=== PATIENT | female | born 1990 | race Caucasian/White ===

== ENCOUNTER 2019-01-13 16:00 | Emergency (ER) | payer OTHER ==
[~2019-01-13] VITALS: Ht 160 cm; Wt 49.9 kg
[~2019-01-13 16:00] MED LIST: CEPHALEXIN500 M1 PO; SEPTDS PO
[2019-01-13 17:40] LABS: BASO % 0.3 % (0.0-1.0); EOS # 0.2 10*3/uL (0.0-0.4); EOS % 1.8 % (1.0-4.0); HEMATOCRIT 31.4 % (37.0-47.0); HEMOGLOBIN 10.8 g/dl (12.0-16.0); LYMPH # 2.6 10*3/uL (1.3-4.4); MEAN CELL VOLUME 95.2 fl (81.0-99.0); MEAN CORPUSCULAR HGB 32.7 pg (27.0-31.0); MEAN CORPUSCULAR HGB CONC 34.4 g/dl (33.0-37.0); MEAN PLATELET VOLUME 9.3 fl (9.6-12.3); MONO # 0.8 10*3/uL (0.1-1.0); MONO % 7.2 % (3.0-9.0); NEUT # 7.2 10*3/uL (2.3-7.9); NEUT % 66.1 % (47.0-73.0); PLATELET COUNT AUTOMATED 297 10*3/uL (130-400); RED CELL DISTRI WIDTH 12.9 % (0-14.5); WHITE BLOOD COUNT 10.8 10*3/uL (4.8-10.8)
[2019-01-13 17:55] LABS: ALBUMIN 2.5 gm/dl (3.1-4.5); ALKALINE PHOSPHATASE 90 U/L (45-117); BUN 11 mg/dl (7-24); CHLORIDE 109 mmol/L (98-107); CREATININE 0.72 mg/dL (0.55-1.02); POTASSIUM 3.9 mmol/L (3.5-5.1); SGOT/AST 70 IU/L (3-35); SGPT/ALT 86 U/L (12-78); SODIUM 140 mmol/L (136-145); TOTAL PROTEIN 8.2 gm/dL (6.4-8.2)
== END 2019-01-13 19:51 | disposition home or self-care (01) ==
LOC: ED 16:00
PROVIDERS: Nurse Practitioner Family
DX: L02.414 Cutaneous abscess of left upper limb (principal); F17.200 Nicotine dependence, unspecified, uncomplicated

== ENCOUNTER 2019-01-14 20:59 | Inpatient (IN) | payer OTHER ==
[~2019-01-14] VITALS: Ht 165.1 cm; Wt 60.6 kg
--- NOTE | ~2019-01-14 | EKG ---
[place], [place] ELECTROCARDIOGRAM REPORT NAME: CASSIA CASTELAN UNIT #: [id number] ROOM: 403 DOCTOR: TARUN DRAFT REPORT BIRTHDATE: [birth year] [facility] Test Date: 2019-01-15 Test Time: 01:20:11 Pat Name: CASSIA CASTELAN Department: Room: 403 2 Gender: F Wellness Rn: : 1990 Requested By: CHRISTOPHER SANTOS Order Number: [id number] Reading MD: Hailye Anderson MD Measurements Intervals [place] Rate: 74 P: -25 [place]: 141 QRS: 60 QRSD: 78 T: 51 QT: 414 QTc: 460 Interpretive Statements Sinus rhythm Electronically Signed On 01-15-2019 13:40:28 PDT by Hailey Anderson MD CM:EKGRPT:ELECTROCARDIOGRAM REPORT [id number] CHRISTOPHER CURIEL DRAFT REPORT CHRISTOPHER SANTOS DO
--- NOTE | ~2019-01-14 | EKG ---
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
--- NOTE | ~2019-01-14 | EKG ---
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
[2019-01-14 20:59] VITALS: BP 106/64
[2019-01-14 22:17] LABS: ALBUMIN 2.4 gm/dl (3.1-4.5); ALKALINE PHOSPHATASE 79 U/L (45-117); BUN 13 mg/dl (7-24); CHLORIDE 107 mmol/L (98-107); CREATININE 0.71 mg/dL (0.55-1.02); LIPASE 103 U/L (73-393); POTASSIUM 4.6 mmol/L (3.5-5.1); SGOT/AST 70 IU/L (3-35); SGPT/ALT 76 U/L (12-78); SODIUM 136 mmol/L (136-145); TOTAL PROTEIN 7.7 gm/dL (6.4-8.2)
[2019-01-14 22:57] LABS: BASO % 0.3 % (0.0-1.0); EOS # 0.3 10*3/uL (0.0-0.4); EOS % 3.5 % (1.0-4.0); HEMATOCRIT 30.2 % (37.0-47.0); HEMOGLOBIN 10.3 g/dl (12.0-16.0); LYMPH # 2.9 10*3/uL (1.3-4.4); LYMPH % 36.7 % (27.0-41.0); MEAN CELL VOLUME 95.9 fl (81.0-99.0); MEAN CORPUSCULAR HGB 32.7 pg (27.0-31.0); MEAN CORPUSCULAR HGB CONC 34.1 g/dl (33.0-37.0); MEAN PLATELET VOLUME 9.8 fl (9.6-12.3); MONO # 0.5 10*3/uL (0.1-1.0); MONO % 6.4 % (3.0-9.0); NEUT # 4.2 10*3/uL (2.3-7.9); NEUT % 52.6 % (47.0-73.0); PLATELET COUNT AUTOMATED 258 10*3/uL (130-400); RED BLOOD COUNT 3.15 10*6/uL (4.10-5.10)
--- NOTE | 2019-01-14 23:56 | NUR ---
PATIENT REFUSED PHOTO FOR ABCESS TO RIGHT ARM.
[2019-01-15 00:40] VITALS: BP 96/60
--- NOTE | 2019-01-15 00:40 | NUR ---
A 28, admitted to , under the services of JOJO Cordova DO with a diagnosis of FAILURE OUTPATIENT TREATMENT,CELLULITIS AND ABSCESS OF RIGHT UPPER ARM. Chief complaint is ABSCESS. Patient arrived via stretcher from ER. Monitor applied. Initial assessment completed. Vital signs taken and recorded. JOJO CORDOVA DO notified of admission to the unit. Orders received. See assessment for past medical history, medications and allergies. Patient and/or family oriented to unit. [facility] visitation policy reviewed. Clothing/patient valuable form completed. CAITLIN STANLEY
--- NOTE | 2019-01-15 01:12 | NUR ---
PATIENT REFUSING TO HAVE BLOOD CULTURES TAKEN. STATES SHE HAD THE DONE IN THE ER YESTERDAY.
[2019-01-15 04:00] VITALS: BP 105/54
--- NOTE | 2019-01-15 04:34 | NUR ---
CASSIA CASTELAN [id number] Please refer to the physician's history and physical for past medical history, comorbid conditions, and allergies. Diagnosis: FAILURE OF OUTPATIENT TREATMENT, CELLULITIS AND James Score: 22,LOW OR NO RISK WOUND DESCRIPTIONS: Wound Number: 1 Location of the wound: left ac Type of wound: abscess Size: 2.0cm x 3.5cm x <0.1cm Tunneling: none Undermining: none Sinus Tract: none Presence of Exudate: none Amount: None Color: Red Odor: None Periwound Skin Appearance: Warm, firmness 5.0cm x 7.5cm x <0.1cm Wound edges: closed Pain (associated with wound): tender to touch How does patient state this happened? pt stated this start last and she stated that she was taking her antibiotics as prescribed she stated this was a miss Surface the patient is resting on: Isoflex SKIN PREVENTION RECOMMENDATION: 1. Pressure redistribution support surface as appropriate 2. Elevate heels 3. Remove boots/TEDS every shift and reapply 4. Head of bed 30 degrees as tolerated 5. Assess nutrition and hydration 6. Manage moisture 7. Avoid the use of containment devices while in bed 8. Use absorptive products on surfaces limit layers of linens on bed 9. Turn and reposition every 1-2 hours in bed and every 1 hour in chair as tolerated 10. Weight shifts every 15 minutes while up in chair 11. Offloading with pillows or device to keep heels elevated off bed 12. Monitor skin at least every shift 13. Inspect under medical devices twice a day WOUND TREATMENT RECOMMENDATIONS: Id and general surgery is already consult. await wound care orders from general surgery since area is intact at time of assessment
--- NOTE | 2019-01-15 06:36 | NUR ---
NOTIFIED DR. OLIVO ANSWERING SERVICE OF NEW CONSULT. NOTIFIED DR. BROWER OF NEW CONSULT. TOLD TO MAKE PATIENT NPO. WILL CONTINUE TO MONITOR.
--- NOTE | 2019-01-15 09:01 | NUR ---
PATIENT MEETS [facility]. PATIENT IS WANTING TO FOLLOW UP WITH [facility] FOR RESIDENTIAL TREATMENT. [place] STAFF WILL FOLLOW UP WITH PATIENT. JENI HILL B.A. [employer]CEL[employer] FINISHER
--- NOTE | 2019-01-15 09:05 | NUR ---
Dr. Vizcarra notified of wound care recommendations.
--- NOTE | 2019-01-15 09:52 | NUR ---
PT REFUSED LABS AGAIN THIS AM. LABS CANCELLED PER LAB
--- NOTE | 2019-01-15 10:17 | NUR ---
PT MADE AWARE OF NEED FOR URINE BEFORE MEDICATIONS. PT SLEEPING IN BED. PT TALKING WITH EYES CLOSED. PT STATES UNDERSTANDING.
--- NOTE | 2019-01-15 11:47 | NUR ---
DR HOLCOMB NOTIFIED OF PT REFUSAL OF LABS ORDERED.
[2019-01-15 12:00] VITALS: BP 120/81
[2019-01-15 12:47] LABS: BILIRUBIN NEGATIVE (NEGATIVE); BLOOD NEGATIVE (NEGATIVE); CLARITY CLEAR (CLEAR); COLOR YELLOW (YELLOW); GLUCOSE NEGATIVE (NEGATIVE); KETONE NEGATIVE (NEGATIVE); LEUKO ESTERASE NEGATIVE (NEGATIVE); NITRITE NEGATIVE (NEGATIVE); PH 6.5 (5.0-9.0); UROBILINOGEN 0.2 E.U./dl (0.2-1.0)
[2019-01-15 13:01] LABS: RBC 0-2 rbc/hpf (0-2)
[2019-01-15 13:03] LABS: URINE AMPHETAMINES < 1000 (1000ng/ml); URINE BARBITURATES > 200 (200ng/ml); URINE BENZODIAZEPINES > 200 (200ng/ml); URINE CANNABINOIDS (THC) < 50 (50ng/ml); URINE COCAINE < 300 (300ng/ml); URINE METHADONE < 300 (300ng/ml); URINE OPIATES < 300 (300ng/ml)
[2019-01-15 13:06] LABS: URINE PHENCYCLIDINE < 25 (25ng/ml)
[2019-01-15 16:00] VITALS: BP 125/69
--- NOTE | 2019-01-15 16:00 | NUR ---
DR EMANUEL NOTIFIED OF IV INFLITRATED, AND PT REQUEST TO SHOWER. ORDERS GIVEN OK TO SHOWER AND REAPLLY MONITOR AFTER AND ATTEMPT IV AGAIN.
--- NOTE | 2019-01-15 16:20 | NUR ---
PT SISTER AT DESK AND STATES SHE WANTS HER SISTER TO LEAVE AND GO TO ANOTHER FACILITY. SHE WAS YELLING AT STAFF. AMA PAPER TAKEN TO PATIENT., PAPER SIGNED. SAMANTHA, NURSING WINE CELLAR WORKER PRESENT IN ROOM. PATIENT REQUESTED AND GIVEN MEDICAL RECORDS FROM THIS STAY EXECPT ECHO. WHICH PT STATES SHE WILL HAVE NEXT FACILITY CALL FOR. DR EMANUEL CALLED AND MADE AWARE.
== END 2019-01-15 16:20 | disposition left against medical advice (07) | DRG 602 ==
LOC: ED 20:59 → EDHOLD 23:38 → 4E 23:38
PROVIDERS: Nurse Practitioner Family; ADMIT Internal Medicine
DX: L03.114 Cellulitis of left upper limb (principal); E43 Unspecified severe protein-calorie malnutrition; J18.9 Pneumonia, unspecified organism; I24.9 Acute ischemic heart disease, unspecified; E87.2 Acidosis; F11.23 Opioid dependence with withdrawal; M94.0 Chondrocostal junction syndrome [Tietze]; Z53.21 Procedure and treatment not carried out due to patient leaving prior to being seen by health care provider; K21.9 Gastro-esophageal reflux disease without esophagitis; F41.1 Generalized anxiety disorder; B19.20 Unspecified viral hepatitis C without hepatic coma; L02.414 Cutaneous abscess of left upper limb; F10.10 Alcohol abuse, uncomplicated; F17.210 Nicotine dependence, cigarettes, uncomplicated; G25.81 Restless legs syndrome; R74.0 Nonspecific elevation of levels of transaminase and lactic acid dehydrogenase [LDH]; D64.9 Anemia, unspecified; R79.82 Elevated C-reactive protein (CRP); E83.51 Hypocalcemia; Z71.6 Tobacco abuse counseling; Z86.79 Personal history of other diseases of the circulatory system; Z86.59 Personal history of other mental and behavioral disorders; Z18.10 Retained metal fragments, unspecified; Z68.22 Body mass index [BMI] 22.0-22.9, adult